=== PATIENT | male | born 1940 | race Caucasian/White ===

== ENCOUNTER 2020-11-20 10:20 | Emergency (ER) | payer OTHER ==
[~2020-11-20] VITALS: Ht 177.8 cm; Wt 98.0 kg
[2020-11-20 10:20] VITALS: BP_SYST 112
[~2020-11-20 10:20] MED LIST: AMIO200T66 PO; ATEN-168 PO; DOXA4TAB2 PO
--- NOTE | 2020-11-20 11:26 | NUR ---
BROUGHT BACK TO BED #4 VIA WHEELCHAIR, PLACED IN BED AND REPORT GIVEN TO MONET
--- NOTE | 2020-11-20 11:40 | NUR ---
Pt bib daughter via wheelchair s/p fall from ladder, approx 2 feet. Pain 10/10 to ribs and hip. Denies any dizziness or LOC. V/S stable. No other trauma noted.
--- NOTE | 2020-11-20 12:00 | NUR ---
ER Dr. López at bedside examining patient.
--- NOTE | 2020-11-20 12:30 | NUR ---
Lab at bedside for blood draw.
[2020-11-20 12:42] LABS: BASOPHILS % (AUTO) 0.5 % (0.0-2.0); EOSINOPHILS % (AUTO) 0.1 % (0.0-4.0); HEMATOCRIT 38.3 % (36-54); LYMPHOCYTES # (AUTO) 0.4 K/uL (1.0-5.5); LYMPHOCYTES % (AUTO) 6.1 % (20.5-51.5); MEAN CORPUSCULAR HEMOGLOBIN 31 pg (27-31); MEAN CORPUSCULAR HGB CONC 34 % (32-36); MEAN CORPUSCULAR VOLUME 92 fL (79.0-98.0); MONOCYTES # (AUTO) 0.6 K/uL (0.0-1.0); MONOCYTES % (AUTO) 8.9 % (1.7-9.3); NEUTROPHILS # (AUTO) 5.4 K/uL (1.8-7.7); NEUTROPHILS % (AUTO) 84.4 % (40.0-70.0); PLATELET COUNT (AUTO) 150 K/uL (130-430); RED BLOOD CELL COUNT(AUTO) 4.19 MIL/uL (4.2-6.2); RED CELL DISTRIBUTION WIDTH 13.5 % (9.0-15.0); WHITE BLOOD COUNT (AUTO) 6.4 K/uL (4.8-10.8)
[2020-11-20 13:17] LABS: ANION GAP 1 (5-15); CALCIUM 9.7 mg/dL (8.4-11.0); CHLORIDE 102 mmol/L (98-107); CREATININE 0.92 mg/dL (0.55-1.30); GLUCOSE 154 mg/dL (70-99); POTASSIUM 4.4 mmol/L (3.5-5.1); SODIUM SERUM 134 mmol/L (136-145); UREA NITROGEN, BLOOD 19 mg/dL (8-21)
--- NOTE | 2020-11-20 13:18 | NUR ---
Patient transported to radiology via wheelchair, accompanied by staff.
[2020-11-20 13:23] LABS: ALANINE AMINOTRANSFERASE 21 U/L (12-78); ALBUMIN 3.1 g/dL (3.4-4.8); ASPARTATE AMINOTRANSFERASE 26 U/L (10-37); TOTAL BILIRUBIN 0.7 mg/dL (0.0-1.0)
[2020-11-20 13:26] LABS: PROTHROMBIN TIME 10.9 SECS (9.5-12.5)
[2020-11-20] MEDS ORDERED: KETOROLAC TROMETHAMINE 60 MG/2 ML VIAL IM ONE (15:15)
[2020-11-20] MEDS ORDERED: HYDROcodone/ACETAMIN 10-325 MG TAB PO ONE (15:15)
[2020-11-20] MEDS ORDERED: IBUP-1971 PO (16:21)
[2020-11-20] MEDS ORDERED: HYDR-3917 PO (16:21)
[2020-11-20 16:41] VITALS: BP_SYST 112
--- NOTE | 2020-11-20 16:41 | NUR ---
Patient given written and verbal discharge instructions and verbalizes understanding. ER MD discussed with patient the results and treatment provided. Patient in stable condition. ID arm band removed. Rx of Motrin and [place] given. Patient educated on pain management and to follow up with PMD. Pain Scale 0. Opportunity for questions provided and answered. Medication side effect fact sheet provided.
== END 2020-11-20 16:41 | disposition home or self-care (01) ==
LOC: SED 10:20
DX: S09.90XA Unspecified injury of head, initial encounter (principal); M25.551 Pain in right hip; M54.5 Low back pain; R07.89 Other chest pain; I10 Essential (primary) hypertension; E11.9 Type 2 diabetes mellitus without complications; Z79.899 Other long term (current) drug therapy; W18.39XA Other fall on same level, initial encounter; Y93.89 Activity, other specified; Y92.89 Other specified places as the place of occurrence of the external cause; Y99.8 Other external cause status
CPT/HCPCS: 36415; 70450; 71045; 71250; 72125; 72128; 72131; 73502; 74176; 76376; 80053; 85025; 85610; 85730; 86886; 86900; 86901; 96372; 99285; J1885

== ENCOUNTER 2021-12-17 05:30 | Inpatient (IN) | payer OTHER ==
[2021-12-17] VITALS (9 sets, daily range): BP systolic 93–146
[~2021-12-17] VITALS: Ht 177.8 cm; Wt 98.4 kg
[~2021-12-17 05:30] MED LIST changes: +HYDR-3917 PO; +IBUP-1971 PO
[2021-12-17] MEDS ORDERED: CEFAZOLIN SOD 2 GM in D5W 50 ML IV ONE (07:00)
[2021-12-17] MEDS ORDERED: CEFAZOLIN 2 GM IVPB PREMIX 50 ML IV ONE (07:13)
[2021-12-17] MEDS ORDERED: KETOROLAC TROMETHAMINE 30 MG VIAL IVP ONE (07:47)
[2021-12-17] MEDS ORDERED: NS 1000 ML IV.SOLN IV ONE (07:47)
[2021-12-17] MEDS ORDERED: SEVOFLURANE 15 MIN GAS INH ONE (07:47)
[2021-12-17] MEDS ORDERED: LR 1,000 ML IV.SOLN IV ONE (07:47)
[2021-12-17] MEDS ORDERED: ROCURONIUM BROMIDE 10 MG/ML (ZEMURON) IV ONE (07:47)
[2021-12-17] MEDS ORDERED: NS IRRIG SOLN 1000 ML IR ONE (07:47)
[2021-12-17] MEDS ORDERED: ONDANSETRON HCL 4 MG/2 ML VIAL IVP ONE (07:47)
[2021-12-17] MEDS ORDERED: PROPOFOL 200MG/ 20ML VIAL (DIPRIVAN) IV ONE (07:47)
[2021-12-17] MEDS ORDERED: TRANEXAMIC ACID 1,000 MG/10 ML VIAL IV ONE (07:47)
[2021-12-17] MEDS ORDERED: traMADol HCL HCL 50 MG TABLET (ULTRAM) PO PRN (11:00)
[2021-12-17] MEDS ORDERED: oxyCODONE HCL 5 MG TABLET PO PRN ×2 (11:00)
[2021-12-17] MEDS ORDERED: HYDROmorphone 1 MG/ML INJ. CARTRIDGE IVP PRN ×4 (11:00→11:45)
[2021-12-17] MEDS ORDERED: LORATADINE 10 MG TABLET PO PRN (11:00)
[2021-12-17] MEDS ORDERED: ceFAZolin SODIUM 2 GM in D5W 50 ML IV SCH (11:15)
[2021-12-17] MEDS ORDERED: KETOROLAC TROMETHAMINE 30 MG VIAL ONE (11:44)
[2021-12-17] MEDS ORDERED: LACTULOSE 20 GM/30 ML UDC PO PRN (11:45)
[2021-12-17] MEDS ORDERED: NALOXONE HCL 0.4 MG/ML AMP (NARCAN) IVP PRN ×4 (11:45)
[2021-12-17] MEDS ORDERED: METOCLOPRAMIDE HCL 10 MG/2 ML VIAL IVP PRN (11:45)
[2021-12-17] MEDS ORDERED: KETOROLAC TROMETHAMINE 30 MG VIAL IVP PRN (11:45)
[2021-12-17] MEDS ORDERED: DIPHENHYDRAMINE HCL 25 MG CAPSULE PO PRN (11:45)
[2021-12-17] MEDS ORDERED: ONDANSETRON HCL 4 MG/2 ML VIAL IVP PRN ×2 (11:45)
[2021-12-17] MEDS ORDERED: BISACODYL 10 MG/SUPPOSITORY RC PRN (11:45)
[2021-12-17] MEDS ORDERED: LR 1,000 ML IV SCH (11:45)
[2021-12-17] MEDS ORDERED: HYDROmorphone 1 MG/ML INJ. CARTRIDGE ONE (11:55)
[2021-12-17] MEDS ORDERED: NIFE30TA84 PO (12:33)
[2021-12-17] MEDS ORDERED: VALS80TA2 PO (12:33)
[2021-12-17] MEDS ORDERED: NALO25TA4 PO (12:33)
[2021-12-17] MEDS ORDERED: TAMS-11 PO (12:33)
--- NOTE | 2021-12-17 12:47 | NUR ---
Report received from DALI Marti for continuity of care. Patient alert and oriented x4. Respiration even and unlabored. No shortness of breath. No c/o pain. Patient said he is hungry. Patient had left hip procedure done. Vital signs stable. Family at bedside. Will continue to monitor.
--- NOTE | 2021-12-17 13:09 | NUR ---
Discharge Planning: DCP faxed pt referral to [facility]#[phone] to set up home health.
[2021-12-17 13:44] LABS: BASOPHILS % (AUTO) 0.3 % (0.0-2.0); LYMPHOCYTES # (AUTO) 0.5 K/uL (1.0-5.5); LYMPHOCYTES % (AUTO) 2.9 % (20.5-51.5); MEAN CORPUSCULAR VOLUME 91 fL (79.0-98.0); MONOCYTES # (AUTO) 0.6 K/uL (0.0-1.0); MONOCYTES % (AUTO) 3.4 % (1.7-9.3); NEUTROPHILS # (AUTO) 15.2 K/uL (1.8-7.7); NEUTROPHILS % (AUTO) 93.4 % (40.0-70.0); PLATELET COUNT (AUTO) 210 K/uL (130-430); RED BLOOD CELL COUNT(AUTO) 4.08 MIL/uL (4.2-6.2); RED CELL DISTRIBUTION WIDTH 14.1 % (9.0-15.0); WHITE BLOOD COUNT (AUTO) 16.3 K/uL (4.8-10.8)
[2021-12-17] MEDS: KETOROLAC TROMETHAMINE 10 MG TABLET (TORADOL) PO SCH ×2 (14:00→22:00)
[2021-12-17] MEDS: ceFAZolin SODIUM 2 GM in D5W 50 ML IV SCH ×2 (14:00→22:10)
[2021-12-17] MEDS: ACETAMINOPHEN 500 MG TABLET PO SCH ×2 (14:00→22:08)
--- NOTE | 2021-12-17 19:00 | NUR ---
Patient said he voided in urinal 400 mL clear, yellow urine in urinal. Patient refused bladder scan.
--- NOTE | 2021-12-17 20:26 | NUR ---
Report given to compressor [employer] RN for continuity of care. Patient stable condition.
[2021-12-17] MEDS: SENNOSIDES/DOCUSATE SODIUM 1 TAB TABLET(SENOKOT-S) PO SCH (21:00)
[2021-12-18 00:53] VITALS: BP_SYST 120
[2021-12-18] MEDS ORDERED: SIMETHICONE 80 MG TAB.CHEW PO PRN (01:15)
[2021-12-18] MEDS: ACETAMINOPHEN 500 MG TABLET PO SCH (05:20)
[2021-12-18] MEDS: ceFAZolin SODIUM 2 GM in D5W 50 ML IV SCH (05:21)
[2021-12-18 07:07] LABS: ALANINE AMINOTRANSFERASE 18 U/L (12-78); ALBUMIN 2.5 g/dL (3.4-4.8); ANION GAP 6 (5-15); ASPARTATE AMINOTRANSFERASE 21 U/L (10-37); CALCIUM 8.5 mg/dL (8.4-11.0); CHLORIDE 104 mmol/L (98-107); CREATININE 0.87 mg/dL (0.55-1.30); GLUCOSE 145 mg/dL (70-99); POTASSIUM 4.1 mmol/L (3.5-5.1); TOTAL BILIRUBIN 0.9 mg/dL (0.0-1.0); UREA NITROGEN, BLOOD 13 mg/dL (8-21)
[2021-12-18] MEDS ORDERED: ACET-2634 PO (07:55)
[2021-12-18 08:00] VITALS: BP_SYST 124
[2021-12-18] MEDS: SENNOSIDES/DOCUSATE SODIUM 1 TAB TABLET(SENOKOT-S) PO SCH (08:27)
[2021-12-18 08:31] LABS: BASOPHILS % (AUTO) 0.5 % (0.0-2.0); EOSINOPHILS % (AUTO) 0.3 % (0.0-4.0); HEMATOCRIT 29.2 % (36-54); LYMPHOCYTES # (AUTO) 0.7 K/uL (1.0-5.5); LYMPHOCYTES % (AUTO) 9.5 % (20.5-51.5); MEAN CORPUSCULAR VOLUME 90 fL (79.0-98.0); MONOCYTES # (AUTO) 0.7 K/uL (0.0-1.0); MONOCYTES % (AUTO) 8.3 % (1.7-9.3); NEUTROPHILS # (AUTO) 6.4 K/uL (1.8-7.7); NEUTROPHILS % (AUTO) 81.4 % (40.0-70.0); PLATELET COUNT (AUTO) 147 K/uL (130-430); RED BLOOD CELL COUNT(AUTO) 3.25 MIL/uL (4.2-6.2); RED CELL DISTRIBUTION WIDTH 13.7 % (9.0-15.0); WHITE BLOOD COUNT (AUTO) 7.8 K/uL (4.8-10.8)
[2021-12-18] MEDS ORDERED: DECADRON 4 MG TABLET PO SCH (09:00)
[2021-12-18] MEDS ORDERED: ASPIRIN 81 MG TAB.CHEW PO SCH (09:00)
[2021-12-18] MEDS ORDERED: CELECOXIB 200 MG CAPSULE PO SCH (11:00)
[2021-12-18 11:41] VITALS: BP_SYST 105
[2021-12-18 12:15] VITALS: BP_SYST 105
--- NOTE | 2021-12-18 14:41 | NUR ---
PT DC TO HOME. PT HAS ALL BELONGINGS. PT TAKEN HOME BY DAUGHTER IN PRIVATE CAR. IV REMOVED INTACT. ID BAND REMOVED. PT EDUCATION PROVIDED. ALL NEEDS MEET AT THIS TIME.
== END 2021-12-18 14:20 | disposition home health service (06) | DRG 470 ==
LOC: SMU 05:30
PROVIDERS: ADMIT Student in an Organized Health Care Education/Training Program; ATTEND Student in an Organized Health Care Education/Training Program
PROC: 0SRB039 Replacement of Left Hip Joint with Ceramic Synthetic Substitute, Cemented, Open Approach (ICD-10-PCS; principal; 2021-12-17 07:47)
DX: M16.12 Unilateral primary osteoarthritis, left hip (principal); E44.1 Mild protein-calorie malnutrition; Z20.822 Contact with and (suspected) exposure to COVID-19; Z68.31 Body mass index [BMI] 31.0-31.9, adult
CPT/HCPCS: 36415; 72170-TC; 76001; 80053; 85025; 87081; 88304; 88311; 96379; 97116-GP; 97530-GP; C1713; C1776; J0690; J1170; J1885; J2405; J2704; J3490; J7030; J7060; J7120; J8540; U0003